=== PATIENT | male | born 1975 | race Two or more races ===

== ENCOUNTER 2019-10-28 21:55 | Emergency (ER) | payer OTHER, BC ==
[~2019-10-28] VITALS: Ht 180.3 cm; Wt 90.0 kg
[2019-10-28 22:02] VITALS: BP 164/105
--- NOTE | 2019-10-28 22:49 | PHYS DOC ---
Past Medical History Past Medical History: No Pertinent History Past Surgical History: No Surgical History Alcohol Use: Occasionally Adult General Chief Complaint Chief Complaint: LOWER EXT PAIN HPI HPI Patient is a 44 year old male who presents with 9 out of 10 throbbing intermittent right foot pain radiating to the calf that began a couple minutes p rior to coming to the ED after waking up from a nap. Patient denies any injuries, reports pain is worse on weight bearing. Review of Systems Review of Systems Constitutional: Denies fever or chills [] Musculoskeletal: Reports right foot pain Integument: Denies rash or skin lesions [] Neurologic: Denies headache, focal weakness or sensory changes [] All other systems were reviewed and found to be within normal limits, except as documented in this note. Allergies Allergies Allergies Coded Allergies Type Severity Reaction Last Updated Verified No Known Drug Allergies 10/28/19 No Physical Exam Physical Exam Constitutional: Well developed, well nourished, no acute distress, non-toxic appearance. [] Skin: Warm, dry, no erythema, no rash. [] Back: No tenderness, no CVA tenderness. [] Extremities: No tenderness, no cyanosis, no clubbing, ROM intact, no edema. Negative Homans sign to the right lower extremity. +2 right pedal pulse. Neurologic: Alert and oriented X 3, normal motor function, normal sensory function, no focal deficits noted. [] Psychologic: Affect normal, judgement normal, mood normal. [] Current Patient Data Vital Signs Vital Signs Date Time Temp Pulse Resp B/P (MAP) Pulse Ox O2 Delivery O2 Flow Rate FiO2 10/28/19 22:02 98.3 92 14 164/105 (124) 94 Room Air 98.3 EKG EKG [] Radiology/Procedures Radiology/Procedures [] Course & Med Decision Making Course & Med Decision Making Pertinent Labs and Imaging studies reviewed. (See chart for details) This is a 44-year-old male patient presenting to the ED today with right foot pain radiating to the right calf, symptoms began after taking an. No known injury. Preliminary read venous Doppler of the right lower extremity is negative. Discharged to home. Follow-up with PCP in 1-2 weeks. Dragon Disclaimer Dragon Disclaimer This electronic medical record was generated, in whole or in part, using a voice recognition dictation system. Departure Departure Impression: Primary Impression: Right foot pain Disposition: 01 HOME, SELF-CARE Condition: STABLE Referrals: NO PCP (PCP) KATLYN SUTTON II, MD follow up in 1-2 weeks Patient Instructions: Musculoskeletal Pain Additional Instructions: You were evaluated in the emergency room for left foot pain take the medicines prescribed as ordered, please follow up with your doctor in the course of this week Scripts Diclofenac Potassium (DICLOFENAC POTASSIUM) 50 Mg Tablet 1 TAB PO BID, #12 TAB Prov: SCOOTER TRAN APRN 10/28/19 Gabapentin (NEURONTIN ) 300 Mg Capsule 300 MG PO TID for NEUROGENIC PAIN, #20 CAP Prov: SCOOTER TRAN APRN 10/28/19 SCOOTER TRAN APRN Oct 28, 2019 22:48
[2019-10-28] MEDS ORDERED: GABA300C18 PO (23:21)
[2019-10-28] MEDS ORDERED: DICL50TA2 PO (23:21)
--- NOTE | 2019-10-28 23:32 | RAD ---
Right Lower Extremity Venous Doppler Ultrasound History: Pain Comparison: None Procedure: Color flow, duplex, spectral analysis and 2D images are obtained with and without compression in the area of the common femoral vein, superficial femoral vein - femoral vein junction, main femoral vein (superficial femoral vein) and popliteal vein. Veins of the proximal calf are also imaged. Findings: There is normal duplex flow, color flow and compressibility of all visualized vein segments. No evidence of deep venous thrombus is present. Impression: No evidence of DVT. Electronically signed by: Gilberto Serna III, MD (10/28/2019 11:29 PM) [id number]
== END 2019-10-28 23:27 | disposition home or self-care (01) ==
LOC: ER 21:55
DX: M79.671 Pain in right foot (principal)
CPT/HCPCS: 93971; 99284-25